=== PATIENT | female | born 1930 | race Caucasian/White ===

== ENCOUNTER 2022-06-23 09:18 | Day surgery (SDC) | payer MEDICARE, OTHER ==
[~2022-06-23] VITALS: Ht 154.9 cm; Wt 49.4 kg
[2022-06-23] MEDS ORDERED: diphenhydrAMINE 50 MG/ML VIAL ONE (09:59)
[2022-06-23] MEDS ORDERED: fentaNYL citrate 0.05 MG/ML VIAL ONE (09:59)
[2022-06-23] MEDS ORDERED: MIDAZOLAM 2 MG/2 ML VIAL ONE (10:00)
[2022-06-23] MEDS ORDERED: LIDOCAINE 2% 100 MG/5 ML UJET TP ONE (10:00)
[2022-06-23] MEDS ORDERED: MIDAZOLAM 2 MG/2 ML VIAL IVP ONE (10:35)
== END 2022-06-23 11:30 | disposition home or self-care (01) ==
LOC: MDS 09:18 → MMU 09:19 → MDS 11:30
PROVIDERS: ATTEND Internal Medicine Gastroenterology
DX: Z12.11 Encounter for screening for malignant neoplasm of colon (principal); Z80.0 Family history of malignant neoplasm of digestive organs; E11.9 Type 2 diabetes mellitus without complications; E78.00 Pure hypercholesterolemia, unspecified; M19.90 Unspecified osteoarthritis, unspecified site; Z90.49 Acquired absence of other specified parts of digestive tract; Z90.710 Acquired absence of both cervix and uterus; Z79.899 Other long term (current) drug therapy; Z20.822 Contact with and (suspected) exposure to COVID-19
CPT/HCPCS: 87426; G0105; J2250; J3010; J1200